=== PATIENT | female | born 1955 | race Caucasian/White ===

== ENCOUNTER 2017-07-26 16:10 | Inpatient (IN) | payer MEDICAID ==
[~2017-07-26] VITALS: Ht 160 cm; Wt 72.6 kg
[2017-07-26 16:18] VITALS: BP 129/68
[2017-07-26 17:12] LABS: BASOPHILS # (AUTO) 0.3 K/uL (0.00-0.22); EOSINOPHILS # (AUTO) 0.2 K/uL (0-0.4); HEMATOCRIT 40.7 % (36-48); HEMOGLOBIN 13.1 g/dL (12.0-16.0); LYMPHOCYTES # (AUTO) 2.3 K/uL (2.5-16.5); MEAN CORPUSCULAR HEMOGLOBIN 29 pg (27-31); MEAN CORPUSCULAR HGB CONC 32 g/dL (33-37); MEAN CORPUSCULAR VOLUME 91 fL (80-94); MONOCYTES # (AUTO) 0.5 K/uL (0.8-1.0); PLATELET COUNT (AUTO) 205 K/uL (140-450); RED BLOOD CELL COUNT(AUTO) 4.49 MIL/uL (4.20-5.40); RED CELL DISTRIBUTION WIDTH 13.4 % (11.6-13.7); WHITE BLOOD COUNT (AUTO) 6.3 K/uL (4.8-10.8)
--- NOTE | 2017-07-26 17:27 | NUR ---
Patient to bed 06.
--- NOTE | 2017-07-26 17:30 | NUR ---
PT PRESENTS TO ER W/C/O LEFT EYE PAIN SINCE 1200. PT STATES HE FEELS LIKE SOMETHING IS STUCK IN HIS EYE. DENIES N/V/D; SKIN IS PINK/WARM/DRY; AAOX4 WITH EVEN AND STEADY GAIT; LUNGS CLEAR BL; HR EVEN AND REGULAR; PT DENIES ANY FEVER, CP, SOB, OR COUGH AT THIS TIME; PATIENT STATES PAIN OF 9/10 AT THIS TIME; VSS; PATIENT POSITIONED FOR COMFORT; HOB ELEVATED; BEDRAILS UP X2; BED DOWN. ER MD MADE AWARE OF PT STATUS.
[2017-07-26 17:32] LABS: ANION GAP 12.5 (8-16); CARBON DIOXIDE 27.8 mmol/L (21-32); CREATININE 0.7 mg/dL (0.6-1.3); POTASSIUM 4.3 mmol/L (3.5-5.1)
[2017-07-26 17:39] LABS: ALBUMIN 3.6 g/dL (3.4-5.0); TOTAL BILIRUBIN 0.2 mg/dL (0.0-1.0)
--- NOTE | 2017-07-26 18:21 | NUR ---
Dr. Glass evaluating patient at bedside.
[2017-07-26] MEDS ORDERED: NACL 0.9% 1,000 ML IV ONE (18:25)
--- NOTE | 2017-07-26 18:59 | NUR ---
Patient will be admitted to care of DR MARMOLEJO. Admited to M/S. Will go to room 119B. Belongings list completed. Report to LIZABETH MARRERO.
[2017-07-26 19:02] LABS: BILIRUBIN,URINE NEGATIVE (NEGATIVE); BLOOD, URINE TRACE-L (NEGATIVE); LEUKOCYTE ESTERASE ,URINE NEGATIVE (NEGATIVE); NITRITE, URINE NEGATIVE (NEGATIVE); UGLUCOSE NEGATIVE (NEGATIVE)
[2017-07-26] MEDS ORDERED: SIMV40TA5 PO (19:02)
[2017-07-26 19:03] LABS: APPEARANCE,URINE CLEAR (CLEAR); COLOR,URINE YELLOW (YELLOW)
[2017-07-26] MEDS ORDERED: [UNRECOGNIZED DRUG - CODE] PO (19:04)
[2017-07-26] MEDS ORDERED: LORA10TA19 PO (19:05)
[2017-07-26 19:10] LABS: RBC,URINE 0-5 (RARE) /HPF (0-5); WBC,URINE NONE SEEN /HPF (0-5)
[2017-07-26 19:15] VITALS: BP 136/71
--- NOTE | 2017-07-26 19:15 | NUR ---
Admitted from ER, with chief complaint of ABD PAIN, DX APPENDICITIS. PT FAMILY AT BEDSIDE TO HELP PROVIDE PT MEDICAL HISTORY AND ADMISSION ASSESSMENT. 61 y/o, Female, Cooperative, AOX4, AMBULATORY, ABLE TO VERBALIZE NEEDS. PT DENIES CHEST PAIN, SOB OR S/S OF ACUTE DISTRESS. PT C/O RLQ ABD PAIN, TENDER WITH PALPATION, DENIES REBOUND TENDERNESS. PT REPORTS TOLERABLE PAIN, DENIES PAIN MED AT THIS TIME, PT WILL CALL FOR PAIN MED. PT DENIES N/V. IV ACCESS ASYMPTOMATIC, PATENT AND INTACT, WILL ADMINISTER IVF ORDERED. DISCUSSED AND REVIEWED PLAN OF CARE WITH PT. PT VERBALIZED UNDERSTANDING. oriented to call light, bed, phone,television, bathroom, smoking policy, visiting hours, procedures, ID bracelet on. Belongings list checked. ALL NEEDS MET. SAFETY MEASURES ENSURED. CALL LIGHT WITHIN REACH. WILL CONTINUE TO MONITOR.
[2017-07-26 20:00] VITALS: BP 134/64
[2017-07-26] MEDS ORDERED: ONDANSETRON 4 MG/2 ML VIAL IVP PRN (20:20)
[2017-07-26] MEDS ORDERED: LORazepam 2 MG/ML VIAL IVP PRN (20:20)
[2017-07-26] MEDS ORDERED: ACETAMINOPHEN 325 MG TAB PO PRN (20:20)
[2017-07-26] MEDS ORDERED: HYDROcodone/APAP 5/325 MG 1 TAB TAB PO PRN (20:20)
[2017-07-26] MEDS ORDERED: MORPHINE SULFATE 2 MG/ML SYR IVP PRN (20:20)
--- NOTE | 2017-07-26 20:42 | NUR ---
CALLED DR SALAMANCA, PT'S SURGERY CONSULT. DISCUSSED PT DX APPENDICITIS, VITAL SIGNS NOTED, SLIGHT TOLERABLE ABD PAIN. ASKED IF MD IS ABLE TO DO SURGERY MD YASSINE STATED NO BECAUSE HE IS IN THE OR AND TO CALL THE ON-CALL OR DOCTOR. WILL NOTIFY Marco ALARCON
[2017-07-26] MEDS ORDERED: CEFEPIME 2,000 MG in DEXTROSE 5% 100 ML IV SCH (21:00)
[2017-07-26] MEDS: DEXT 5% /NACL 0.9% 1,000 ML IV SCH (21:04)
[2017-07-26] MEDS: metroNIDAZOLE 500 MG/NS PREMIX 100 ML IV SCH (21:42)
--- NOTE | 2017-07-26 21:42 | NUR ---
ADMINISTERED DUE MED WITH EDUCATION. PT VERBALIZED UNDERSTANDING. IVPB INFUSING WELL. ALL NEEDS MET. SAFETY MEASURES ENSURED. CALL LIGHT WITHIN REACH. WILL CONTINUE TO MONITOR.
[2017-07-26] MEDS ORDERED: CEFEPIME 1,000 MG VIAL ONE (21:55)
--- NOTE | 2017-07-26 23:31 | NUR ---
CALLED Ami ALARCON. DISCUSSED PT DX, PT CONDITION AND PLAN OF CARE, MADE AWARE THAT DR SALAMANCA CANNOT SEE THE PT TONIGHT. STATED THAT IT IS OK AND TO ASK DR SALAMANCA IF HE IS ABLE TO SEE THE PT IN THE MORNING. CALLED DR SALAMANCA, MADE AWARE THAT Ami ALARCON IS OK TO HAVE MD SEE THE PT IN THE MORNING. DISCUSSED RESULTS OF CT ABD/PELV, WBC 6.3, TOLERABLE ABD PAIN, NO N/V. STATED THAT HE WILL SEE THE PT IN THE MORNING. ORDERS RECEIVED FOR US ABD IN THE AM. ORDERS PENDING, WILL CARRY OUT.
[2017-07-27] VITALS: BP 122/57
--- NOTE | 2017-07-27 00:55 | NUR ---
PT SLEEPING, AROUSABLE TO NAME. NO S/S OF ACUTE DISTRESS. ALL NEEDS MET. IVF INFUSING WELL. SAFETY MEASURES ENSURED. CALL LIGHT WITHIN REACH. WILL CONTINUE TO MONITOR.
[2017-07-27] MEDS: metroNIDAZOLE 500 MG/NS PREMIX 100 ML IV SCH ×3 (04:46→20:30)
--- NOTE | 2017-07-27 04:46 | NUR ---
PT SLEEPING COMFORTABLY, AROUSABLE TO NAME, NO S/S OF ACUTE DISTRESS. ADMINISTERED DUE MED WITH EDUCATION. PT STATED "OK." ALL NEEDS MET. IVPB INFUSING WELL. SAFETY MEASURES ENSURED. CALL LIGHT WITHIN REACH. WILL CONTINUE TO MONITOR.
[2017-07-27] MEDS: DEXT 5% /NACL 0.9% 1,000 ML IV SCH (05:22)
[2017-07-27 06:31] LABS: BASOPHILS # (AUTO) 0.2 K/uL (0.00-0.22); BASOPHILS % (AUTO) 2.9 % (0.0-2.0); EOSINOPHILS # (AUTO) 0.2 K/uL (0-0.4); EOSINOPHILS % (AUTO) 3.3 % (0.0-4.0); HEMATOCRIT 37.6 % (36-48); HEMOGLOBIN 12.5 g/dL (12.0-16.0); LYMPHOCYTES # (AUTO) 2.4 K/uL (2.5-16.5); LYMPHOCYTES % (AUTO) 45.7 % (20.5-51.1); MEAN CORPUSCULAR HEMOGLOBIN 30 pg (27-31); MEAN CORPUSCULAR HGB CONC 33 g/dL (33-37); MEAN CORPUSCULAR VOLUME 90 fL (80-94); MONOCYTES # (AUTO) 0.4 K/uL (0.8-1.0); MONOCYTES % (AUTO) 6.8 % (1.7-9.3); NEUTROPHILS # (AUTO) 2.3 K/uL (1.8-7.7); NEUTROPHILS % (AUTO) 41.3 % (42.2-75.2); PLATELET COUNT (AUTO) 177 K/uL (140-450); RED BLOOD CELL COUNT(AUTO) 4.17 MIL/uL (4.20-5.40); RED CELL DISTRIBUTION WIDTH 13.5 % (11.6-13.7); WHITE BLOOD COUNT (AUTO) 5.5 K/uL (4.8-10.8)
[2017-07-27 06:40] LABS: ANION GAP 7.8 (8-16); CARBON DIOXIDE 29.3 mmol/L (21-32); CREATININE 0.6 mg/dL (0.6-1.3); POTASSIUM 4.1 mmol/L (3.5-5.1)
--- NOTE | 2017-07-27 07:29 | NUR ---
ENDORSED PLAN OF CARE TO AM NURSE. CONDITION STABLE.
--- NOTE | 2017-07-27 07:30 | NUR ---
RECIEVED REPORT FROM NOC NURSE PT LYING IN HER BED WITH HER EYES OPEN. HEAD TO TOE ASSESSMENT V/S WNL
--- NOTE | 2017-07-27 07:40 | NUR ---
RECIEVED REPORT FROM NERISSA NURSE PT LYING IN HER BED WITH HER EYES OPEN PT HAS PAIN IN HER LEFT SIDE. V/S WNL Addendum: 07/27/17 at 1941 by Agency Stephan MCQUEEN [employer] ASSISTANT WRONG PT
--- NOTE | 2017-07-27 08:00 | NUR ---
Patient's Plan of Care was discussed and reviewed with LAB ASSISTANT: CAYETANO OLIVIER
[2017-07-27] MEDS ORDERED: SIMVASTATIN 40 MG TAB PO SCH ×2 (09:00→21:00)
--- NOTE | 2017-07-27 09:00 | NUR ---
NO MEDS GIVEN PT NPO
--- NOTE | 2017-07-27 10:02 | NUR ---
PATIENT HAS BEEN SCREENED AND CATEGORIZED MODERATE NUTRITION RISK. PATIENT WILL BE SEEN WITHIN 3-5 DAYS OF ADMISSION. 07/29/17-07/31/[address]
[2017-07-27] MEDS ORDERED: CEFEPIME 2,000 MG in DEXTROSE 5% 100 ML IV SCH (10:21)
--- NOTE | 2017-07-27 12:00 | NUR ---
PT REMAINED NPO. PT LYING IN HER BED WITH HE EYES OPEN
--- NOTE | 2017-07-27 13:23 | NUR ---
SPOKE WITH DAMIAN FROM [email or web address]. FAXED INITIAL REVIEW TO HER AT [phone] PHONE DAMIAN [phone].
--- NOTE | 2017-07-27 15:00 | NUR ---
PT DIET WAS CHANGED TO CLEAR LIQUID DIET
[2017-07-27] MEDS: LORATADINE 10 MG TAB PO SCH (15:47)
[2017-07-27] MEDS: PARoxetine 20 MG TAB PO SCH (15:47)
--- NOTE | 2017-07-27 18:27 | NUR ---
ULTRA SOUND RESULT NOT IN YET. CALLED RADIOLOGY SPOKE TO [place] US WAS DONE AT 1355 RESULTS ARE READ BY AN OFF SITE COMPANY. MD WANT TO BE CALLED WHEN RESULTS ARE IN
--- NOTE | 2017-07-27 19:25 | NUR ---
GAVE REPORT TO PM NURSE PT CINTHYA
--- NOTE | 2017-07-27 19:40 | NUR ---
DR SALAMANCA MADE AWARE OF ULTRASOUND RESULT, UPDATED ON PT'S CONDITION, SAID "MAINTAIN ON CLEAR LIQUID AND WILL SEE HOW SHE DOES TOMORROW", PT AND AT BEDSIDE MADE AWARE.
[2017-07-27 20:15] VITALS: BP 134/66
[2017-07-27] MEDS: CEFEPIME 2,000 MG in DEXTROSE 5% 100 ML IV SCH (20:57)
[2017-07-27] MEDS ORDERED: SIMVASTATIN 20 MG TAB PO SCH (21:00)
--- NOTE | 2017-07-27 21:00 | NUR ---
DUE PO ZOCOR STARTED WITH EDUCATION PROVIDED, IV ANTIBIOTIC INFUSING WELL, ALL NEEDS ATTENDED.
[2017-07-28] VITALS: BP 124/58
--- NOTE | 2017-07-28 | NUR ---
PT SLEEPING, EASILY AROUSABLE, VITAL SIGNS STABLE, DENIES ANY PAIN, IVF INFUSING WELL, CONTINUE TO MONITOR CLOSELY.
[2017-07-28] MEDS: DEXT 5% /NACL 0.9% 1,000 ML IV SCH ×2 (01:11→14:09)
--- NOTE | 2017-07-28 03:00 | NUR ---
SEEN PT SLEEPING, EASILY AROUSABLE, TOLERABLE PAIN 3/10, ENCOURAGE TO CALL IF PAIN GET WORST, CALL LIGHT WITHIN REACH.
[2017-07-28] MEDS: metroNIDAZOLE 500 MG/NS PREMIX 100 ML IV SCH ×2 (05:03→14:08)
[2017-07-28 05:59] LABS: BASOPHILS # (AUTO) 0.2 K/uL (0.00-0.22); BASOPHILS % (AUTO) 3.6 % (0.0-2.0); EOSINOPHILS # (AUTO) 0.2 K/uL (0-0.4); HEMATOCRIT 37.2 % (36-48); HEMOGLOBIN 12.3 g/dL (12.0-16.0); LYMPHOCYTES # (AUTO) 1.9 K/uL (2.5-16.5); MEAN CORPUSCULAR HEMOGLOBIN 30 pg (27-31); MEAN CORPUSCULAR HGB CONC 33 g/dL (33-37); MEAN CORPUSCULAR VOLUME 91 fL (80-94); MONOCYTES # (AUTO) 0.4 K/uL (0.8-1.0); MONOCYTES % (AUTO) 8.6 % (1.7-9.3); NEUTROPHILS # (AUTO) 2.5 K/uL (1.8-7.7); NEUTROPHILS % (AUTO) 47.8 % (42.2-75.2); PLATELET COUNT (AUTO) 160 K/uL (140-450); RED CELL DISTRIBUTION WIDTH 13.1 % (11.6-13.7); WHITE BLOOD COUNT (AUTO) 5.2 K/uL (4.8-10.8)
--- NOTE | 2017-07-28 06:20 | NUR ---
PT COMPLAINING OF ABDOMINAL PAIN 04/09, MEDICATED PRN WITH NORCO, IVF INFUSING WELL, MONITORED CLOSELY.
[2017-07-28 07:05] LABS: CREATININE 0.7 mg/dL (0.6-1.3)
--- NOTE | 2017-07-28 07:23 | NUR ---
PT SLEEPING,NO SIGNS OF DISTRESS, REPORT GIVEN TO LIZABETH MACK FOR CONTINUITY OF CARE.
--- NOTE | 2017-07-28 07:24 | NUR ---
RECEIVED REPORT AT BEDSIDE FOR CONTINUITY OF CARE. PT IS AWARE AND ORIENTED . INTRODUCED MYSELF AND UPDATED THE BOARD. PT IS AMBULATORY. SKIN INTACT. IV ON L HAND 22G D5NS 100ML. SPOKE TO DR. SALAMANCA THIS MORNING. ALL LABS PENDING. PLAN FOR TODAY- OBSERVATION, CONTINUE ABX. DR LUNA ON CONSULT. WILL CONTINUE TO MONITOR PT.
[2017-07-28 08:00] VITALS: BP 128/72
[2017-07-28] MEDS: CEFEPIME 2,000 MG in DEXTROSE 5% 100 ML IV SCH (09:01)
[2017-07-28] MEDS: LORATADINE 10 MG TAB PO SCH (09:01)
[2017-07-28] MEDS: PARoxetine 20 MG TAB PO SCH (09:01)
--- NOTE | 2017-07-28 09:05 | NUR ---
ADMINISTERED MORNING MEDS. PT TOLERATED WELL. NO SIGNS OF DISTRESS. NO COMPLAINTS. WILL CONTINUE TO MONITOR PT.
--- NOTE | 2017-07-28 11:06 | NUR ---
PT IS RESTING COMFORTABLY. NO SIGNS OF DISTRESS. NO COMPLAINTS. "EVERYTHING IS OK" PER PT. WILL CONTINUE TO MONITOR PT.
--- NOTE | 2017-07-28 13:06 | NUR ---
DR. Ami MARMOLEJO HERE TO ASSESS PT.
--- NOTE | 2017-07-28 13:51 | NUR ---
CM NOTE CONCURRENT REVIEW FAXED TO [facility] / FAX# [phone], ATTN: DAMIAN #[phone].
--- NOTE | 2017-07-28 15:00 | NUR ---
PT RESTING COMFORTABLY WITH SPOUSE AT BEDSIDE. NO SIGNS OF DISTRESS. WILL CONTINUE TO MONITOR PT.
[2017-07-28 16:00] VITALS: BP 147/65
--- NOTE | 2017-07-28 16:45 | NUR ---
DC INSTRUCTIONS GIVEN. PT TO F/U WITH DR. SALAMANCA IN 1 WEEK. NO RX WAS GIVEN. PT VERBALIZED UNDERSTANDING. REMOVED IV, CANNULA INTACT. NO BLEEDING NOTED. REMOVED ID BAND. PT WILL GET DRESSED AND GATHER HER PERSONAL BELONGINGS. WILL LET US KNOW WHEN SHE IS READY TO GO.
--- NOTE | 2017-07-28 17:10 | NUR ---
HEALTHCARE MARKETER WALKED PT OUT ACCOMPANIED BY HER . PERSONAL BELONGINGS WITH HER. PT IS IN STABLE CONDITION.
== END 2017-07-28 17:10 | disposition home or self-care (01) | DRG 254 ==
LOC: MED 16:10 → MTU 20:23
PROVIDERS: ADMIT Preventive Medicine Preventive Medicine/Occupational Environmental Medicine; ATTEND Preventive Medicine Preventive Medicine/Occupational Environmental Medicine
DX: K35.80 Unspecified acute appendicitis (principal); E78.5 Hyperlipidemia, unspecified; E66.9 Obesity, unspecified; F99 Mental disorder, not otherwise specified; Z68.28 Body mass index [BMI] 28.0-28.9, adult; R73.9 Hyperglycemia, unspecified
CPT/HCPCS: 36415; 71010; 76705; 80048; 80053; 81001; 82150; 83690; 84484; 85025; 85651; 86140; 87040; 87081; 87086; 93005; 96360; 99285; J0692; J3490; J7030; J7042; J7060; Q0092